=== PATIENT | female | born 1945 | race Hispanic/Latino ===

== ENCOUNTER 2020-12-27 03:27 | Emergency (ER) | payer OTHER, MEDICARE ==
[~2020-12-27] VITALS: Ht 157.5 cm; Wt 62.1 kg
[2020-12-27] MEDS ORDERED: ACETAMINOPHEN 325 MG TAB PO ONE (04:30)
[2020-12-27] MEDS ORDERED: ACET1TAB25 PO (06:28)
[2020-12-27 07:00] VITALS: BP 150/75
== END 2020-12-27 07:17 | disposition home or self-care (01) ==
LOC: EDH 03:27
DX: S90.01XA Contusion of right ankle, initial encounter (principal); M25.531 Pain in right wrist; R22.31 Localized swelling, mass and lump, right upper limb; Z60.2 Problems related to living alone; W10.8XXA Fall (on) (from) other stairs and steps, initial encounter; Y93.89 Activity, other specified; Y92.89 Other specified places as the place of occurrence of the external cause; Y99.8 Other external cause status
CPT/HCPCS: 29125; 70450; 73110